=== PATIENT | female | born 1945 | race Caucasian/White ===

== ENCOUNTER 2022-04-23 15:07 | Inpatient (IN) ==
[2022-04-23] MEDS ORDERED: NS 0.9% 1000 ml BAG 2,000 ML IV ONE (20:47)
[2022-04-23 21:14] LABS: ABS Eosinophils 0.3 10^3/ul (0-0.6); ABS Lymphocytes 1.7 10^3/ul (1.0-4.8); ABS Monocytes 0.4 10^3/ul (0-0.8); ABS Neutrophils 2.7 10^3/ul (1.5-7.7); Hematocrit 36 % (35-47); Hemoglobin 11.5 g/dL (12.0-16.0); Lymphocyte % 32.8 %; Mean Corpuscular HGB Conc 32 g/dL (31-36); Mean Corpuscular Hemoglobin 27 pg (27-31); Mean Corpuscular Volume 85 fL (80-97); Mean Platelet Volume 7.7 fL (7.4-10.4); Nucleated Red Blood Cells % 0.1; Platelet Count 261 10^3/uL (150-450); Red Blood Count 4.25 10^6 /uL (3.70-4.87); Red Cell Distribution Width 14 % (10-15); White Blood Count 5.1 10^3/uL (3.5-10.8)
[2022-04-23 21:15] LABS: Urine Appearance Slightly Cloudy; Urine Bilirubin 1+ (Small) (Negative); Urine Color Yellow; Urine Glucose Negative (Negative); Urine Ketones 1+ (15mg/dL) (Negative)
[2022-04-23 21:16] LABS: Urine Blood Trace (Intact) (Negative); Urine Nitrite Negative (Negative); Urine Protein Negative (Negative); Urine Urobilinogen 1.0 (Negative) (Negative)
[2022-04-23 21:27] LABS: Urine Bacteria Absent (Absent); Urine Red Blood Cell 3+(>10/hpf) (Absent); Urine White Blood Cell Trace(0-5/hpf) (Absent)
[2022-04-23 21:50] LABS: Albumin 3.8 g/dL (3.2-5.2); Albumin/Globulin Ratio 1.4 (1-3); C Reactive Protein 29.56 mg/L (<8.01); Calcium 9.9 mg/dL (8.6-10.3); Globulin 2.8 g/dL (2-4); Potassium 3.9 mmol/L (3.5-5.0); Total Bilirubin 0.3 mg/dL (0.2-1.0); Total Protein 6.6 g/dL (6.4-8.9); eGFR CKD-EPI 92.6 (>60)
[2022-04-23] MEDS ORDERED: Iohexol 350 (CONTRAST) 500 ML MDV IV ONE (22:59)
[2022-04-24] MEDS ORDERED: NS 0.9% 1000 ml BAG 1,000 ML IV ONE (00:47)
[2022-04-24] MEDS ORDERED: Piperacillin/Tazobac ADVAN 3.375 GM in NS 0.9% 100 ml BAG 100 ML IV ONE (00:47)
[2022-04-24] MEDS ORDERED: Ondansetron 4 mg VIAL 2 MG/ML 2 ml VIAL IV PRN (03:11)
[2022-04-24 04:29] LABS: Magnesium 2.2 mg/dL (1.9-2.7)
[2022-04-24] MEDS ORDERED: Morphine 2 MG/ML SYRINGE IV PRN (04:50)
[2022-04-24 05:40] LABS: ABS Basophils 0.1 10^3/ul (0-0.2); ABS Eosinophils 0.3 10^3/ul (0-0.6); ABS Lymphocytes 1.6 10^3/ul (1.0-4.8); ABS Monocytes 0.3 10^3/ul (0-0.8); Eosinophil % 7.1 %; Hematocrit 34 % (35-47); Hemoglobin 10.8 g/dL (12.0-16.0); Lymphocyte % 36.8 %; Mean Corpuscular HGB Conc 32 g/dL (31-36); Mean Corpuscular Hemoglobin 27 pg (27-31); Mean Corpuscular Volume 85 fL (80-97); Mean Platelet Volume 7.6 fL (7.4-10.4); Nucleated Red Blood Cells % 0.1; Platelet Count 243 10^3/uL (150-450); Red Blood Count 3.99 10^6 /uL (3.70-4.87); Red Cell Distribution Width 14 % (10-15); White Blood Count 4.3 10^3/uL (3.5-10.8)
[2022-04-24 06:00] LABS: Calcium 8.7 mg/dL (8.6-10.3); eGFR CKD-EPI 95.8 (>60)
[2022-04-24] MEDS ORDERED: Enoxaparin 40 MG/0.4 ML SYR SUBCUT SCH (06:00)
[2022-04-24] MEDS: NS 0.9% 1000 ml BAG 1,000 ML IV SCH ×2 (07:35→18:26)
[2022-04-24] MEDS: Enoxaparin 40 MG/0.4 ML SYR SUBCUT SCH (07:35)
[2022-04-24] MEDS ORDERED: Zosyn per Pharmacy NOTE FOLLOW UP SCH (08:00)
[2022-04-24] MEDS ORDERED: Piperacillin/Tazobac 3.375 GM BAG ONE (08:01)
[2022-04-24] MEDS: ZOSYN 3.375 GM Q8H per EXTENDED INFUSION IV SCH ×4 (08:02→23:14)
[2022-04-24 17:44] LABS: C Reactive Protein 22.53 mg/L (<8.01)
[2022-04-25] MEDS: NS 0.9% 1000 ml BAG 1,000 ML IV SCH (05:06)
[2022-04-25 06:00] LABS: Hematocrit 32 % (35-47); Hemoglobin 10.5 g/dL (12.0-16.0); Mean Corpuscular HGB Conc 33 g/dL (31-36); Mean Corpuscular Hemoglobin 28 pg (27-31); Mean Corpuscular Volume 85 fL (80-97); Mean Platelet Volume 7.4 fL (7.4-10.4); Platelet Count 242 10^3/uL (150-450); Red Cell Distribution Width 14 % (10-15); White Blood Count 3.4 10^3/uL (3.5-10.8)
[2022-04-25 06:30] LABS: Calcium 8.9 mg/dL (8.6-10.3); Magnesium 2.1 mg/dL (1.9-2.7); Potassium 3.7 mmol/L (3.5-5.0); eGFR CKD-EPI 91.5 (>60)
[2022-04-25] MEDS: ZOSYN 3.375 GM Q8H per EXTENDED INFUSION IV SCH ×2 (08:34→16:11)
[2022-04-25] MEDS: Enoxaparin 40 MG/0.4 ML SYR SUBCUT SCH (08:37)
[2022-04-25] MEDS: Polyethylene Glycol 3350 17 GM PACKET PO SCH (16:11)
[2022-04-26] MEDS: ZOSYN 3.375 GM Q8H per EXTENDED INFUSION IV SCH ×2 (00:18→08:45)
[2022-04-26 05:50] LABS: Hematocrit 34 % (35-47); Hemoglobin 10.9 g/dL (12.0-16.0); Mean Corpuscular HGB Conc 32 g/dL (31-36); Mean Corpuscular Hemoglobin 27 pg (27-31); Mean Corpuscular Volume 84 fL (80-97); Mean Platelet Volume 7.5 fL (7.4-10.4); Platelet Count 255 10^3/uL (150-450); Red Cell Distribution Width 14 % (10-15); White Blood Count 3.8 10^3/uL (3.5-10.8)
[2022-04-26] MEDS: Enoxaparin 40 MG/0.4 ML SYR SUBCUT SCH (10:37)
[2022-04-26] MEDS: Polyethylene Glycol 3350 17 GM PACKET PO SCH (10:37)
[2022-04-26 11:14] VITALS: BP 121/53
[2022-04-26] MEDS ORDERED: ZOSYN 3.375 GM IV ONE (14:00)
== END 2022-04-26 16:45 | disposition home or self-care (01) | DRG 392 ==
LOC: ED 15:07 → EDHOLD 04-24 03:11 → SUATTDRO 04-24 03:11 → EDHOLD 04-24 13:50 → MED 04-24 14:26
PROVIDERS: ADMIT Internal Medicine; ATTEND Internal Medicine

== ENCOUNTER 2023-04-15 21:28 | Inpatient (IN) ==
[2023-04-15 21:50] LABS: ABS Basophils 0.1 10^3/uL (0.0-0.1); ABS Eosinophils 0.2 10^3/uL (0.0-0.5); ABS Lymphocytes 4.3 10^3/uL (1.0-4.8); ABS Monocytes 0.4 10^3/uL (0.0-0.9); ABS Nucleated RBC 0.01 10^3/ul; Eosinophil % 2.3 %; Hematocrit 40.4 % (35-45); Hemoglobin 13.9 g/dL (11.5-14.3); Lymphocyte % 54.2 %; Mean Corpuscular Hemoglobin 28.4 pg (27-33); Mean Corpuscular Hgb Conc 34.4 g/dL (31-36); Mean Corpuscular Volume 82.6 fL (80-97); Mean Platelet Volume 7.3 fL (7.5-11.2); Nucleated Red Blood Cells % 0.1 /100 WBC (0.0-0.4); Platelet Count 239 10^3/uL (150-450); Red Blood Count 4.89 10^6/uL (3.63-4.92); Red Cell Distribution Width 14.6 % (12-17)
[2023-04-15 22:03] LABS: Albumin 4.5 g/dL (3.2-5.2); Calcium 10.2 mg/dL (8.6-10.3); Potassium 3.6 mmol/L (3.5-5.0); Total Bilirubin 0.4 mg/dL (0.2-1.0)
[2023-04-15 22:06] LABS: INR 0.88 (0.83-1.13)
[2023-04-15 22:09] LABS: Albumin/Globulin Ratio 1.5 (1-3); Creatinine, Serum 0.75 mg/dL (0.51-0.95); Total Protein 7.5 g/dL (6.4-8.9); eGFR CKD-EPI 81.9 (>60)
[2023-04-15 23:38] LABS: High Sensitivity Troponin 1 Hr 3258 pg/mL (<15)
[2023-04-16] MEDS ORDERED: Nitroglycerin 0.3 mg TAB SL PRN (00:16)
[2023-04-16] MEDS ORDERED: Heparin DRIP 25,000 UNITS BAG 25,000 UNITS/500 ML BAG IV SCH ×3 (00:30→03:58)
[2023-04-16] MEDS ORDERED: Heparin 5000 UNITS/ML 1 mL VIAL IV SCH (01:00)
[2023-04-16] MEDS ORDERED: Nitro 2% OINT (Nitroglycerin) 1 INCH/PAK TOPICAL ONE (01:31)
[2023-04-16 01:51] LABS: ABS Basophils 0.1 10^3/uL (0.0-0.1); ABS Eosinophils 0.1 10^3/uL (0.0-0.5); ABS Lymphocytes 1.8 10^3/uL (1.0-4.8); ABS Monocytes 0.5 10^3/uL (0.0-0.9); ABS Neutrophils 7.8 10^3/uL (1.5-7.6); ABS Nucleated RBC 0.01 10^3/ul; Eosinophil % 0.5 %; Hematocrit 39.1 % (35-45); Hemoglobin 13.3 g/dL (11.5-14.3); Lymphocyte % 17.6 %; Mean Corpuscular Hemoglobin 28.1 pg (27-33); Mean Corpuscular Volume 82.6 fL (80-97); Mean Platelet Volume 7.3 fL (7.5-11.2); Nucleated Red Blood Cells % 0.1 /100 WBC (0.0-0.4); Platelet Count 242 10^3/uL (150-450); Red Blood Count 4.73 10^6/uL (3.63-4.92); Red Cell Distribution Width 15.1 % (12-17); White Blood Count 10.2 10^3/uL (3.8-11.8)
[2023-04-16 02:18] LABS: Creatinine, Serum 0.67 mg/dL (0.51-0.95)
[2023-04-16] MEDS ORDERED: Iohexol 350 (CONTRAST) 500 ML MDV IV ONE (02:29)
[2023-04-16 02:59] LABS: High Sensitivity Troponin 3 Hr 9777 pg/mL (<15)
[2023-04-16] MEDS ORDERED: nitroGLYCERIN DRIP 25,000 MCG/250 ML BTL IV SCH ×2 (04:00)
[2023-04-16] MEDS ORDERED: Furosemide 20 mg/2 ml IV VIAL IV SLOW PU ONE (05:30)
[2023-04-16 06:09] LABS: PCO2 Arterial 36 mmHg (35-45); PO2 Arterial 94 mmHg (80-100)
[2023-04-16] MEDS ORDERED: Morphine 2 MG/ML SYRINGE IV PRN (06:23)
[2023-04-16] MEDS ORDERED: fentaNYL 100 mcg/2 ml 50 MCG/ML VIAL IV SLOW PU ONE (08:22)
[2023-04-16] MEDS ORDERED: Midazolam 10 mg/10 ml VIAL 1 mg/ml 10 ml VIAL (10 mg) IV SLOW PU ONE (08:22)
[2023-04-16] MEDS ORDERED: NS 0.9% 1000 ml BAG 1,000 ML IV SCH (08:30)
[2023-04-16 09:26] LABS: ABS Monocytes 0.5 10^3/uL (0.0-0.9); ABS Neutrophils 6.5 10^3/uL (1.5-7.6); Eosinophil % 0.2 %; Hematocrit 39.1 % (35-45); Hemoglobin 13.1 g/dL (11.5-14.3); Lymphocyte % 22.3 %; Mean Corpuscular Hemoglobin 27.5 pg (27-33); Mean Corpuscular Hgb Conc 33.5 g/dL (31-36); Mean Corpuscular Volume 82.1 fL (80-97); Mean Platelet Volume 7.5 fL (7.5-11.2); Platelet Count 238 10^3/uL (150-450); Red Blood Count 4.76 10^6/uL (3.63-4.92); Red Cell Distribution Width 14.7 % (12-17); White Blood Count 9.2 10^3/uL (3.8-11.8)
[2023-04-16] MEDS ORDERED: Sulfur Hexaflouride MICROSPHR 25 MG VIAL ONE (09:46)
[2023-04-16 09:48] LABS: Potassium 3.5 mmol/L (3.5-5.0)
[2023-04-16] MEDS ORDERED: fentaNYL 100 mcg/2 ml 50 MCG/ML VIAL ONE (09:49)
[2023-04-16] MEDS ORDERED: VERAPAMIL 2.5 MG/ML 2 ML VIAL ** 5 mg/2 ml ONE (09:49)
[2023-04-16] MEDS ORDERED: Midazolam 5 mg/5 ml VIAL 1 mg/ml 5 ml VIAL (5 mg) ONE (09:49)
[2023-04-16] MEDS ORDERED: nitroGLYCERIN DRIP 25,000 MCG/250 ML BTL ONE (09:50)
[2023-04-16] MEDS ORDERED: Heparin 1,000 UNIT/ML 10 ml (10,000 UNITS) CATHLAB/DIALYSIS ONE (09:50)
[2023-04-16] MEDS ORDERED: Lidocaine 1% MPF 5 ML VIAL ONE (09:50)
[2023-04-16] MEDS ORDERED: Iohexol 300 (CONTRAST) 10 ML SDV ONE (09:50)
[2023-04-16] MEDS ORDERED: Iohexol 350 (CONTRAST) 200 ML MDV IV ONE (09:50)
[2023-04-16] MEDS ORDERED: Heparin 2 UNITS/ML 1000 mls 2,000 ML IV ONE (09:50)
[2023-04-16 09:54] LABS: Creatinine, Serum 0.66 mg/dL (0.51-0.95); HDL Cholesterol 79.4 mg/dL; eGFR CKD-EPI 90.3 (>60)
[2023-04-16 09:59] LABS: TSH Ultra Thyroid Stim Horm 2.3 mcIU/mL (0.34-5.60)
[2023-04-16 10:01] LABS: Free T4 0.55 ng/dL (0.61-1.12)
[2023-04-17] MEDS ORDERED: NS 0.9% 250 ml 250 ML IV SCH (08:00)
[2023-04-17 08:12] LABS: Hematocrit 33.3 % (35-45); Hemoglobin 11.3 g/dL (11.5-14.3); Mean Corpuscular Hemoglobin 28.1 pg (27-33); Mean Corpuscular Volume 82.7 fL (80-97); Mean Platelet Volume 7.7 fL (7.5-11.2); Platelet Count 183 10^3/uL (150-450); Red Blood Count 4.02 10^6/uL (3.63-4.92); Red Cell Distribution Width 14.6 % (12-17); White Blood Count 6.4 10^3/uL (3.8-11.8)
[2023-04-17 08:28] LABS: Calcium 8.5 mg/dL (8.6-10.3); Creatinine, Serum 0.69 mg/dL (0.51-0.95); Potassium 3.6 mmol/L (3.5-5.0); eGFR CKD-EPI 89.3 (>60)
[2023-04-17] MEDS ORDERED: Potassium Chlor 20 meq TAB.ER PO ONE (09:00)
[2023-04-17 09:44] LABS: ABS Basophils 0.1 10^3/uL (0.0-0.1); ABS Eosinophils 0.4 10^3/uL (0.0-0.5); ABS Lymphocytes 1.9 10^3/uL (1.0-4.8); ABS Monocytes 0.5 10^3/uL (0.0-0.9); ABS Neutrophils 4.6 10^3/uL (1.5-7.6); ABS Nucleated RBC 0.01 10^3/ul; Eosinophil % 4.8 %; Hematocrit 34.2 % (35-45); Hemoglobin 11.5 g/dL (11.5-14.3); Lymphocyte % 25.6 %; Mean Corpuscular Hemoglobin 27.8 pg (27-33); Mean Corpuscular Hgb Conc 33.5 g/dL (31-36); Mean Corpuscular Volume 82.8 fL (80-97); Mean Platelet Volume 7.5 fL (7.5-11.2); Nucleated Red Blood Cells % 0.1 /100 WBC (0.0-0.4); Platelet Count 194 10^3/uL (150-450); Red Blood Count 4.13 10^6/uL (3.63-4.92); Red Cell Distribution Width 14.7 % (12-17); White Blood Count 7.4 10^3/uL (3.8-11.8)
[2023-04-17 11:21] LABS: Urine Appearance Clear; Urine Bilirubin Negative (Negative); Urine Blood 2+ (Negative); Urine Color Yellow; Urine Glucose Negative (Negative); Urine Ketones Negative (Negative); Urine Nitrite Negative (Negative); Urine Protein Negative (Negative); Urine Specific Gravity 1.009 (1.002-1.030); Urine Urobilinogen Negative (Negative)
[2023-04-17 11:41] LABS: Urine Bacteria Absent (Absent); Urine Red Blood Cell Trace(0-2/hpf) (Absent); Urine Squamous Epithelial Cell Present (Absent); Urine White Blood Cell Trace(0-5/hpf) (Absent)
[2023-04-17 14:56] LABS: T4, Total 5.93 mcg/dL (6.09-12.23)
[2023-04-17 14:59] LABS: TSH Ultra Thyroid Stim Horm 7.06 mcIU/mL (0.34-5.60)
[2023-04-17 17:36] LABS: Free T4 0.77 ng/dL (0.61-1.12)
[2023-04-18 06:07] LABS: ABS Eosinophils 0.4 10^3/uL (0.0-0.5); ABS Lymphocytes 2.3 10^3/uL (1.0-4.8); ABS Monocytes 0.4 10^3/uL (0.0-0.9); ABS Nucleated RBC 0.01 10^3/ul; Eosinophil % 7.4 %; Hemoglobin 10.8 g/dL (11.5-14.3); Lymphocyte % 44.5 %; Mean Corpuscular Hemoglobin 27.8 pg (27-33); Mean Corpuscular Hgb Conc 33.8 g/dL (31-36); Mean Corpuscular Volume 82.3 fL (80-97); Mean Platelet Volume 7.8 fL (7.5-11.2); Nucleated Red Blood Cells % 0.1 /100 WBC (0.0-0.4); Platelet Count 172 10^3/uL (150-450); Red Blood Count 3.89 10^6/uL (3.63-4.92); Red Cell Distribution Width 14.8 % (12-17); White Blood Count 5.1 10^3/uL (3.8-11.8)
[2023-04-18 06:51] LABS: Calcium 8.8 mg/dL (8.6-10.3); Creatinine, Serum 0.6 mg/dL (0.51-0.95); Potassium 4.3 mmol/L (3.5-5.0); eGFR CKD-EPI 92.4 (>60)
[2023-04-18 10:25] VITALS: BP 122/60
== END 2023-04-18 14:10 | disposition home or self-care (01) | DRG 280 ==
LOC: ED 21:28 → EDHOLD 21:28 → SUATTDRO 04-16 02:40 → ICU 04-16 07:55 → SUATTDRO 04-16 09:30 → MEDTELE 04-16 20:16
PROVIDERS: ADMIT Internal Medicine; ATTEND Internal Medicine